=== PATIENT | female | born 1965 | race Caucasian/White ===

== ENCOUNTER 2017-10-06 09:01 | Inpatient (IN) ==
[2017-10-06] MEDS ORDERED: SODIUM CHLORIDE 0.9% 1,000 ML IV STA (10:32)
[2017-10-06] MEDS ORDERED: ALUM/MAG/SIMETH/LIDO VISC 1:1 30 ML BOTTLE PO STA (10:32)
[2017-10-06] MEDS ORDERED: ALUM/MAG/SIMETH/LIDO VISC 1:1 30 ML BOTTLE PO ONE (10:33)
[2017-10-06 10:36] LABS: Basophils % 0.5 % (0.0-0.8); Eosinophils # 0.2 10*3/uL (0.0-0.87); Eosinophils % 2.2 % (0.00-10.9); Hematocrit 41.6 VOL% (35.7-47.0); Hemoglobin 13.2 GM/DL (12.0-16.0); Immature Granulocytes % 0.4 %; Immature Granulocytes Absolute 0.03 #; Lymphocytes # 1.5 10*3/uL (1.4-4.0); Lymphocytes % 17.9 % (21.3-54.2); Mean Corpuscular HGB Conc 31.7 GM/DL (32-36); Mean Corpuscular Hemoglobin 26 PG (27-34); Mean Corpuscular Volume 82.2 FL (87-102); Mean Platelet Volume 9.8 FL (9.6-12.0); Monocytes # 0.6 10*3/uL (0.11-0.8); Monocytes % 7.4 % (1.7-12.7); Neutrophils # 6.1 10*3/uL (1.4-7.4); Neutrophils % 71.6 % (38.7-73.9); Platelet Count 482 T/CUMM (130-400); Red Blood Count 5.06 MC/CUMM (3.8-5.5); Red Cell Distribution Width 14.6 % (9.3-17.3); White Blood Count 8.6 T/CUMM (4-12)
[2017-10-06 10:40] LABS: Apearance,Urine Slightly Hazy (Clear); Bacteria,Urine Occasional /HPF (Few); Bilirubin,Urine Negative (Negative); Blood, Urine Large mg/dL (Negative); Glucose,Urine (UA) Negative (Negative); Ketones,Urine 80 mg/dL (Negative); Mucus,Urine Few /LPF (Occasional); Nitrite,Urine Negative (Negative); Protein,Urine Negative; RBC,Urine 5 /HPF (0-4); Squamous Epithelial Cell,Urine Occasional /HPF (0-10); Urine Color Yellow (Yellow); Urine Specific Gravity 1.018 (1.001-1.035); WBC,Urine 2 /HPF (0-6)
[2017-10-06 10:49] LABS: Albumin 3.9 G/DL (3.4-5.0); Bilirubin,Total 0.7 MG/DL (0.2-1.0); Calcium 9.3 MG/DL (8.5-10.1); Osmolality,Calculated 272.7 MOS/KG (273-304); Potassium 3.6 MMOL/L (3.5-5.1); Total Protein 8.2 G/DL (6.4-8.3)
[2017-10-06] MEDS ORDERED: ONDANSETRON 4 MG/2 ML VIAL IV STA (10:58)
[2017-10-06] MEDS ORDERED: ONDANSETRON 4 MG/2 ML VIAL ONE ×2 (11:00→20:45)
[2017-10-06] MEDS ORDERED: PIPERACILLIN/TAZOBACTAM 3,375 MG in SODIUM CHLORIDE 0.9% 100 ML IV STA (16:10)
[2017-10-06] MEDS ORDERED: SODIUM CHLORIDE 0.9% 100 ML IV ONE (16:28)
[2017-10-06] MEDS ORDERED: PIPERACILLIN/TAZOBACTAM 3,375 MG VIAL IV ONE (16:28)
[2017-10-06] MEDS ORDERED: ONDANSETRON 4 MG/2 ML VIAL IV ONE (20:44)
[2017-10-06] MEDS ORDERED: ACETAMINOPHEN 325 MG TABLET PO PRN (21:07)
[2017-10-06] MEDS ORDERED: ONDANSETRON 4 MG/2 ML VIAL IV PRN (21:07)
[2017-10-06] MEDS ORDERED: DEXTROSE 5% NACL 0.45% 1,000 ML IV SCH (21:07)
[2017-10-06] MEDS: HYDROmorphone 2 MG/1 ML VIAL IV PRN (23:00)
[2017-10-06] MEDS: PIPERACILLIN/TAZOBACTAM 3,375 MG in SODIUM CHLORIDE 0.9% 100 ML IV SCH (23:02)
[2017-10-07] MEDS: PIPERACILLIN/TAZOBACTAM 3,375 MG in SODIUM CHLORIDE 0.9% 100 ML IV SCH (06:00)
[2017-10-07] MEDS ORDERED: BUPIVACAINE 0.25% 50 ML VIAL ONE (06:22)
[2017-10-07] MEDS ORDERED: TISSUE ADHESIVE 1 EACH APPLICATOR TOP ONE (06:22)
[2017-10-07] MEDS ORDERED: SCOPOLAMINE 1.5 MG PATCH TRANSDERM ONE (06:53)
[2017-10-07] MEDS ORDERED: PROPOFOL 200 MG/20 ML VIAL IV ONE (08:27)
[2017-10-07] MEDS ORDERED: MIDAZOLAM 2 MG/2 ML VIAL ONE (08:28)
[2017-10-07] MEDS ORDERED: fentaNYL 100 MCG/2 ML VIAL ONE (08:28)
[2017-10-07] MEDS ORDERED: KETOROLAC 30 MG/1 ML VIAL ONE (08:28)
[2017-10-07] MEDS ORDERED: ROCURONIUM 100 MG/10 ML VIAL IV ONE (08:28)
[2017-10-07] MEDS ORDERED: ACETAMINOPHEN 1,000 MG/100 ML VIAL IV ONE (08:28)
[2017-10-07] MEDS ORDERED: ONDANSETRON 4 MG/2 ML VIAL ONE (08:28)
[2017-10-07] MEDS ORDERED: SEVOFLURANE 1 UNIT/15 MINUTE INH ONE (08:28)
[2017-10-07] MEDS ORDERED: GLYCOPYRROLATE 0.4 MG/2 ML VIAL ONE (08:29)
[2017-10-07] MEDS ORDERED: DEXAMETHASONE 10 MG/1 ML VIAL ONE (08:29)
[2017-10-07] MEDS ORDERED: LACTATED RINGERS 1,000 ML IV ONE (08:29)
[2017-10-07] MEDS ORDERED: NEOSTIGMINE 10 MG/10 ML VIAL ONE (08:29)
[2017-10-07] MEDS ORDERED: PANTOPRAZOLE 40 MG TABLET PO SCH (09:00)
[2017-10-07] MEDS: HYDROmorphone 2 MG/1 ML VIAL IV PRN (09:39)
[2017-10-07 10:21] LABS: Bilirubin,Total 0.7 MG/DL (0.2-1.0); Calcium 8.2 MG/DL (8.5-10.1); Osmolality,Calculated 271.8 MOS/KG (273-304); Potassium 3.9 MMOL/L (3.5-5.1)
[2017-10-07 11:31] LABS: Basophils % 0.2 % (0.0-0.8); Eosinophils % 0.2 % (0.00-10.9); Hematocrit 35.9 VOL% (35.7-47.0); Hemoglobin 11.4 GM/DL (12.0-16.0); Immature Granulocytes % 0.5 %; Immature Granulocytes Absolute 0.05 #; Lymphocytes # 0.5 10*3/uL (1.4-4.0); Lymphocytes % 4.5 % (21.3-54.2); Mean Corpuscular HGB Conc 31.8 GM/DL (32-36); Mean Corpuscular Hemoglobin 26 PG (27-34); Mean Corpuscular Volume 82.3 FL (87-102); Mean Platelet Volume 9.7 FL (9.6-12.0); Monocytes # 0.1 10*3/uL (0.11-0.8); Monocytes % 1.3 % (1.7-12.7); Neutrophils % 93.3 % (38.7-73.9); Platelet Count 439 T/CUMM (130-400); Red Blood Count 4.36 MC/CUMM (3.8-5.5); Red Cell Distribution Width 14.4 % (9.3-17.3); White Blood Count 10.7 T/CUMM (4-12)
[2017-10-07 12:28] LABS: Band Neutrophils 5 % (0-10); Hypochromasia 2+; Lymphocytes 2 % (20-55); Microcytosis 2+; Platelet Estimate Increased; Segmented Neutrophils 91 % (50-85); Total Cells Counted 100
[2017-10-07 12:43] VITALS: BP 111/68
== END 2017-10-07 15:33 | disposition home or self-care (01) | DRG 419 ==
LOC: N.ED 09:01 → N.EDINP 16:45 → N.2E 19:46
PROVIDERS: ADMIT Surgery; ATTEND Surgery
PROC: LAPCHOL (2017-10-07 07:00)